=== PATIENT | female | born 1990 | race Caucasian/White ===

== ENCOUNTER 2019-05-03 07:10 | Day surgery (SDC) | payer BC, OTHER ==
[~2019-05-03] VITALS: Ht 160 cm; Wt 84.8 kg
[~2019-05-03 07:10] MED LIST: TAYTULLA 1 MG-1 EACH PO
[2019-05-03 08:00] VITALS: BP 134/89
[2019-05-03] MEDS ORDERED: OXYCODONE HCL 55 MG PO (10:27)
[2019-05-03] MEDS ORDERED: IBUPROFEN 200200 M1 PO (10:27)
[2019-05-03] MEDS ORDERED: MIRALAX17 GM PO (10:29)
[2019-05-03] MEDS ORDERED: COLACE 100 MG100 MG PO (10:29)
[2019-05-03] MEDS ORDERED: ACETAMINOPHEN325 M1 PO (10:29)
[2019-05-03 10:47] VITALS: BP 134/89
--- NOTE | 2019-05-05 10:07 | PATH ---
[facility] [address] [place] [address] PATHOLOGY RPT PROCEDURE Name: MALGORZATA WAHL Room #: DEP [facility]..#: [id number] Admission: 05/03/19 Date of : 89 Discharge: 05/03/19 Report #: [id number] Path Case #: [id number] [facility] Accession Number: [id number] . 01 Material submitted: . gallbladder - GALLBLADDER . 01 Clinical history: . Chronic cholecystitis . 02 Diagnosis: Gallbladder, cholecystectomy: - Chronic cholecystitis. - Cholesterolosis. - Cholelithiasis. (CHON:louis; 05/04/2019) MBR/05/04/2019 . 02 Electronically signed: . Rohit Monge MD, Pathologist NPI- [id number] . 01 Gross description: . The specimen is received in formalin, labeled "Malgorzata Walh, gallbladder", is a previously opened gallbladder measuring 9.7 cm in length and 2.2 cm in maximum diameter with a hernandez-pink wrinkled and edematous serosa. The cystic duct is dilated. The mucosa is hernandez and with cholesterolosis. The wall is 0.2 cm in average thickness. Within the lumen and the container there are multiple bosselated yellow calculi measuring 3.5 x 3.0 x 0.9 cm in aggregate. Representatively submitted in A1. ([facility]; 05/03/2019) SHS/SHS . 02 Pathologist provided ICD-10: K80.10, K82.4 . 02 CPT . 818742 Specimen Comment: A courtesy copy of this report has been sent to Specimen Comment: [phone], . Specimen Comment: Report sent to / DR HAYDEN Performed at: [address] [id number] MD Jani Harvey MD Phone: [phone] Performed at: 02 [place] [address] PATHOLOGY RPT PROCEDURE Name: MALGORZATA WAHL Room #: DEP [facility] Jesus.Tracy#: [id number] Admission: 05/03/19 Date of : 89 Discharge: 05/03/19 Report #: [id number] Path Case #: [id number] [address] [place], [place] [id number] MD Tram Duffy MD Phone: [phone]
== END 2019-05-03 11:20 | disposition home or self-care (01) ==
LOC: OR 07:10 → TBA 07:13 → OR 09:41
DX: K80.10 Calculus of gallbladder with chronic cholecystitis without obstruction (principal); K21.9 Gastro-esophageal reflux disease without esophagitis; Z98.890 Other specified postprocedural states; Z79.899 Other long term (current) drug therapy; Z79.891 Long term (current) use of opiate analgesic
CPT/HCPCS: 50010; 50101; 50249; 50411; 50555; 50558; 51489; 52265; 52266; 53307; 53310; 53312; 54022; 54118; 55245; 56462; 56525; 56526; 56674; 62110; 62900; 70005